=== PATIENT | female | born 1935 | race Caucasian/White ===

== ENCOUNTER 2016-07-24 13:31 | Emergency (ER) | payer OTHER ==
[~2016-07-24] VITALS: Ht 152.4 cm; Wt 56.7 kg
[~2016-07-24 13:31] MED LIST: ALDACTONE25 M1 PO; ALDACTONE25 MG PO; ALLEGRA180 MG PO; ASCRIPTIN1 TA1 PO; ASPIRIN81 MG PO; BACTRIM DS 8001 TAB PO; CARDIZEM CD120 MG PO; CARDIZEM60 MG PO; CELEXA20 MG PO; CEPHULAC10 GM/15 M PO; CHRONULAC10 GM/15 M PO; CIPRO IV400 MG/200; CIPROFLOXACIN500 MG PO; COLACE100 MG PO; CORDARONE200 MG; CORDARONE200 MG PO; DIABETA1.25 MG PO; DIGITEK0.125 MG PO; DILTIAZEM180 MG PO; DOCUSATE SODIU PO; DOXINATE PO; DULCOLAX5 MG PO; DURAGESIC25 MCG/HR TD; Diltiazem180 MG PO; E MYCIN PO; FENTANYL TR25 MCG/HR TD; FENTANYL TR75 MCG/HR TD; FEROSUL325 MG PO; GLUCOSAMINE500 M1 PO; GLYBURIDE1.25 MG PO; HYZAAR 12.5 MG-1 TAB PO; INSULIN HUMA100 U/ML; KCL PO; LANOXIN0.125 MG PO; LISINOPRIL10 MG PO; LOPRESSOR50 MG PO; LOVENOX40 MG/0.4 SC; MAXIDE PO; METOPROLOL SR25 MG PO; METRONIDAZ500 MG/100 IV; MICRO-K8 MEQ PO; MOBIC7.5 MG PO; MULTIPLE VITAMI1 CAP PO; MYLANTA240 MG MM; PACERONE100 MG PO; PEPCID20 MG PO; PERCOCET 325 MG1 TA7 PO; POTASSIUM20 MEQ PO; PRAVACHOL20 MG PO; PRAVACHOL40 MG PO; PRAVASTATIN SOD40 MG PO; PROTONIX IV40 M1 PO; PROTONIX40 MG PO; REGLAN10 MG PO; ROCEPHIN1 GM IV; TPN; ZYVOX100 MG/5 M PO; Zofran4 MG IV; [UNRECOGNIZED DRUG - OTHER] PO; [UNRECOGNIZED DRUG - OTHER] PO; [UNRECOGNIZED DRUG - OTHER] PO
== END 2016-07-24 15:42 | disposition home or self-care (01) ==
LOC: ED 13:31
DX: S05.12XA Contusion of eyeball and orbital tissues, left eye, initial encounter (principal); S60.221A Contusion of right hand, initial encounter; Z90.710 Acquired absence of both cervix and uterus; Z90.49 Acquired absence of other specified parts of digestive tract; Z79.82 Long term (current) use of aspirin; Z96.652 Presence of left artificial knee joint; Z88.0 Allergy status to penicillin; Z88.8 Allergy status to other drugs, medicaments and biological substances; W10.1XXA Fall (on)(from) sidewalk curb, initial encounter; Y93.89 Activity, other specified; Y92.481 Parking lot as the place of occurrence of the external cause; Y99.9 Unspecified external cause status

== ENCOUNTER 2019-09-26 09:19 | Inpatient (IN) | payer OTHER ==
[~2019-09-26] VITALS: Ht 170.2 cm; Wt 61.2 kg
[~2019-09-26 09:19] MED LIST changes: +DIGOX125 MCG PO; +GLYBURIDE5 MG PO; -LANOXIN0.125 MG PO
[2019-09-26 09:31] VITALS: BP 124/36
[2019-09-26 10:52] LABS: BASO % 0.4 % (0.0-1.0); EOS # 0.1 10*3/uL (0.0-0.4); EOS % 1.1 % (1.0-4.0); HEMATOCRIT 33.2 % (37.0-47.0); HEMOGLOBIN 10.2 g/dl (12.0-16.0); LYMPH # 1.3 10*3/uL (1.3-4.4); LYMPH % 12.2 % (27.0-41.0); MEAN CELL VOLUME 88.5 fl (81.0-99.0); MEAN CORPUSCULAR HGB 27.2 pg (27.0-31.0); MEAN CORPUSCULAR HGB CONC 30.7 g/dl (33.0-37.0); MEAN PLATELET VOLUME 9.8 fl (9.6-12.3); MONO # 0.9 10*3/uL (0.1-1.0); MONO % 8.2 % (3.0-9.0); NEUT # 8.5 10*3/uL (2.3-7.9); NEUT % 77.7 % (47.0-73.0); PLATELET COUNT AUTOMATED 394 10*3/uL (130-400); RED BLOOD COUNT 3.75 10*6/uL (4.10-5.10); RED CELL DISTRI WIDTH 15.1 % (0-14.5)
[2019-09-26 11:07] LABS: ALKALINE PHOSPHATASE 47 U/L (45-117); BUN 35 mg/dl (7-24); CHLORIDE 103 mmol/L (98-107); CREATININE 0.93 mg/dL (0.55-1.02); LIPASE 45 U/L (73-393); POTASSIUM 3.8 mmol/L (3.5-5.1); SGOT/AST 10 IU/L (3-35); SGPT/ALT 14 U/L (12-78); SODIUM 137 mmol/L (136-145); TOTAL PROTEIN 6.6 gm/dL (6.4-8.2)
[2019-09-26 11:11] LABS: INTERNATIONAL NORM RATIO 0.9 (2.0-3.5)
[2019-09-26 11:17] LABS: BILIRUBIN NEGATIVE (NEGATIVE); CLARITY SL CLOUDY (CLEAR); COLOR YELLOW (YELLOW); GLUCOSE NEGATIVE (NEGATIVE); KETONE NEGATIVE (NEGATIVE)
[2019-09-26 11:18] LABS: BLOOD NEGATIVE (NEGATIVE); LEUKO ESTERASE 1+ (NEGATIVE); NITRITE NEGATIVE (NEGATIVE); PH 8.5 (5.0-9.0); UROBILINOGEN 0.2 E.U./dl (0.2-1.0)
[2019-09-26 11:19] LABS: WBC 21-30 wbc/hpf (0-5)
[2019-09-26 11:20] LABS: BACTERIA 4+
--- NOTE | 2019-09-26 13:18 | NUR ---
SHELLIE URIAS NP FOR FECAL OCCULT TEST. RESULTS POSITIVE.
[2019-09-26 14:55] VITALS: BP 131/52
--- NOTE | 2019-09-26 15:00 | NUR ---
Time: 1499 A 84 year old FEMALE admitted to 5E under services of DR. KEYONA STEEL,[facility]. Pt. arrived via bed from ER. Chief complaint: UTI, GI BLEED. BUCK ESCOBAR
[2019-09-26] MEDS ORDERED: DIGOXIN250 MCG PO (15:08)
[2019-09-26] MEDS ORDERED: GLYBURIDE5 MG PO (15:10)
[2019-09-26] MEDS ORDERED: VALSARTAN-HCTZ1 EAC2 PO (15:12)
[2019-09-26] MEDS ORDERED: FENOFIBRATE145 M1 PO (15:13)
[2019-09-26] MEDS ORDERED: NAPROXEN500 MG PO (15:14)
[2019-09-26] MEDS ORDERED: AMLODIPINE BESY10 MG PO (15:15)
[2019-09-26] MEDS ORDERED: CLONIDINE HCL0.1 MG PO (15:16)
[2019-09-26] MEDS ORDERED: GLUCOSAMINE &1 EACH PO (15:19)
--- NOTE | 2019-09-26 15:20 | NUR ---
DR RAND AWARE OF PT'S ADM AND WILL SEE PT TODAY. NO ORDERS AT PRESENT.
--- NOTE | 2019-09-26 19:13 | NUR ---
24 HR CHART CHECK COMPLETE.
[2019-09-26 20:00] VITALS: BP 119/44
--- NOTE | 2019-09-26 20:13 | NUR ---
CALLED DR RAND REGARDING PT'S C/O NAUSEA. ORDERS RECIEVED.
--- NOTE | 2019-09-26 20:35 | NUR ---
PT MEDICATED WITH PRN ZOFRAN FOR C/O NAUSEA. WILL MONITOR FOR EFFECTIVENESS.
--- NOTE | 2019-09-27 04:26 | NUR ---
PT CALLED OUT C/O "COLD SWEATS AND SHAKING THAT HAPPENS WHEN MY SUGAR IS LOW" PER PT THIS HAPPENS FREQUENTLY AT HOME. BS IS 44. PT PROVIDED WITH ORANGE JUICE AND SNACK AND HAS A REPEAT SUGAR OF 70. WILL CONTINUE TO MONITOR.
[2019-09-27 06:22] LABS: BASO # 0.1 10*3/uL (0.0-0.1); BASO % 0.6 % (0.0-1.0); EOS # 0.1 10*3/uL (0.0-0.4); EOS % 1.3 % (1.0-4.0); HEMATOCRIT 29.2 % (37.0-47.0); HEMOGLOBIN 8.9 g/dl (12.0-16.0); LYMPH # 1.5 10*3/uL (1.3-4.4); LYMPH % 19.2 % (27.0-41.0); MEAN CORPUSCULAR HGB 27.1 pg (27.0-31.0); MEAN CORPUSCULAR HGB CONC 30.5 g/dl (33.0-37.0); MONO # 0.5 10*3/uL (0.1-1.0); MONO % 6.4 % (3.0-9.0); NEUT # 5.7 10*3/uL (2.3-7.9); NEUT % 71.9 % (47.0-73.0); PLATELET COUNT AUTOMATED 378 10*3/uL (130-400); RED BLOOD COUNT 3.28 10*6/uL (4.10-5.10); RED CELL DISTRI WIDTH 15.1 % (0-14.5)
[2019-09-27 06:42] LABS: CHLORIDE 109 mmol/L (98-107); CREATININE 0.71 mg/dL (0.55-1.02); SODIUM 139 mmol/L (136-145)
[2019-09-27 06:43] LABS: BUN 19 mg/dl (7-24)
--- NOTE | 2019-09-27 07:25 | NUR ---
Nursing screen received and chart reviewed. Patient admitted with UTI and GI Bleed. If patient should havea decline in ADLs then refer for occupational therapy evaluation. THank you. Haley Hankins OTR/L
--- NOTE | 2019-09-27 07:57 | NUR ---
PHYSICAL THERAPY Screen received pt is from home, admitted with abdominal pain with GI bleed and UTI. Please consult PT if pt has a decline in functional status from baseline, thank you Aimee Bragg PT
[2019-09-27 08:00] VITALS: BP 107/53
--- NOTE | 2019-09-27 11:53 | NUR ---
FOLLOWED ORDERS PER DR. RAND. DC CLONIDINE, AND PO DIABETIC MEDICATIONS, RECHECK HGB. LAB TIME SET FOR 1700 09/27/19.
[2019-09-27 12:00] VITALS: BP 121/41
--- NOTE | 2019-09-27 13:28 | NUR ---
Public Safety Dispatcher in to talk to patient. Patient states lives at home with her and her daughter checking in on them. There are 0 steps in the home. Physician: Dr. Yeung [facility]acy: [facility] Home health services: none Patient's level of ADLs: MINIMAL ASSIST Patient has working utilities: yes DME: cane Follow-up physician's appointment after d/c: she prefers to make her own follow up appt after discharge Does patient want to access PORTAL?: no Discharge plan discussed with patient. She lives at home with her . She is independent in her ADLs and ambulates with a cane. Discussed home health care services and she denies any home needs at this time. When medically stable she will be discharged to home. She states her daughter will provide transportation on discharge. BE ANDERSON
[2019-09-27 16:00] VITALS: BP 136/46
[2019-09-27 17:34] LABS: BASO % 0.7 % (0.0-1.0); EOS # 0.1 10*3/uL (0.0-0.4); HEMATOCRIT 30.1 % (37.0-47.0); HEMOGLOBIN 9.2 g/dl (12.0-16.0); LYMPH # 1.8 10*3/uL (1.3-4.4); LYMPH % 31.6 % (27.0-41.0); MEAN CELL VOLUME 89.3 fl (81.0-99.0); MEAN CORPUSCULAR HGB 27.3 pg (27.0-31.0); MEAN CORPUSCULAR HGB CONC 30.6 g/dl (33.0-37.0); MONO # 0.5 10*3/uL (0.1-1.0); MONO % 8.7 % (3.0-9.0); NEUT # 3.1 10*3/uL (2.3-7.9); NEUT % 56.6 % (47.0-73.0); PLATELET COUNT AUTOMATED 370 10*3/uL (130-400); RED BLOOD COUNT 3.37 10*6/uL (4.10-5.10); WHITE BLOOD COUNT 5.5 10*3/uL (4.8-10.8)
[2019-09-27 20:00] VITALS: BP 155/51
[2019-09-28] VITALS (8 sets, daily range): BP systolic 127–153; BP diastolic 45–64
--- NOTE | 2019-09-28 09:00 | NUR ---
Pick Pack Worker in to see patient. No new needs or request at this time. She denies any home needs. When medically stable she will be discharged to home.
--- NOTE | 2019-09-28 20:34 | NUR ---
PATIENT IS AAOX3 RESTING IN BED WATCHING TV WITH EASY AND REGULAR RESPERS ON ROOM AIR. ASSESSMENT IS COMPLETE WITH NO C/O OR S/S OF DISTRESS NOTED AT THIS TIME. BED IS LOW, LOCKED, AND CALL LIGHT IS WITHIN REACH. WILL CONTINUE TO MONITOR, SEE SHIFT ASSESSMENT.
[2019-09-29] VITALS: BP 152/63
[2019-09-29 06:33] LABS: BASO # 0.1 10*3/uL (0.0-0.1); BASO % 0.9 % (0.0-1.0); EOS # 0.2 10*3/uL (0.0-0.4); EOS % 3.5 % (1.0-4.0); HEMATOCRIT 32.8 % (37.0-47.0); HEMOGLOBIN 10.1 g/dl (12.0-16.0); LYMPH # 2.3 10*3/uL (1.3-4.4); LYMPH % 35.3 % (27.0-41.0); MEAN CORPUSCULAR HGB 26.4 pg (27.0-31.0); MEAN CORPUSCULAR HGB CONC 30.8 g/dl (33.0-37.0); MEAN PLATELET VOLUME 9.7 fl (9.6-12.3); MONO # 0.7 10*3/uL (0.1-1.0); MONO % 10.7 % (3.0-9.0); NEUT # 3.2 10*3/uL (2.3-7.9); NEUT % 49.4 % (47.0-73.0); PLATELET COUNT AUTOMATED 472 10*3/uL (130-400); RED BLOOD COUNT 3.83 10*6/uL (4.10-5.10); RED CELL DISTRI WIDTH 14.6 % (0-14.5); WHITE BLOOD COUNT 6.5 10*3/uL (4.8-10.8)
[2019-09-29 06:47] LABS: CHLORIDE 109 mmol/L (98-107); POTASSIUM 3.3 mmol/L (3.5-5.1); SODIUM 142 mmol/L (136-145)
[2019-09-29 06:48] LABS: CREATININE 0.55 mg/dL (0.55-1.02)
[2019-09-29 06:52] LABS: BUN 5 mg/dl (7-24)
[2019-09-29 06:57] LABS: MEAN CELL VOLUME 85.6 fl (81.0-99.0)
[2019-09-29 08:00] VITALS: BP 143/55
[2019-09-29 12:00] VITALS: BP 158/68
[2019-09-29] MEDS ORDERED: PROTONIX40 MG PO (12:55)
[2019-09-29] MEDS ORDERED: CARAFATE1 G1 PO (12:55)
[2019-09-29 16:00] VITALS: BP 177/66
[2019-09-29] MEDS ORDERED: CIPRO500 MG PO (16:02)
--- NOTE | 2019-09-29 18:23 | NUR ---
Discharge instructions reviewed with patient. Patient receptive and verbalizes understanding. Follow-up care arranged. Written instructions given to patient, IV REMOVED, PATIENT TAKEN OUT VIA W/C BY HOSPITAL PA. ELENA WILKINSON
== END 2019-09-29 19:07 | disposition home or self-care (01) | DRG 378 ==
LOC: ED 09:19 → EDHOLD 13:25 → 5E 13:25
PROVIDERS: Nurse Practitioner Family; ADMIT Internal Medicine Nephrology
PROC: 0DJD8ZZ Inspection of Lower Intestinal Tract, Via Natural or Artificial Opening Endoscopic (ICD-10-PCS; principal; 2019-09-28)
PROC: 0DB68ZX Excision of Stomach, Via Natural or Artificial Opening Endoscopic, Diagnostic (ICD-10-PCS; principal; 2019-09-28)
DX: K57.31 Diverticulosis of large intestine without perforation or abscess with bleeding (principal); N17.9 Acute kidney failure, unspecified; N39.0 Urinary tract infection, site not specified; E86.9 Volume depletion, unspecified; K25.4 Chronic or unspecified gastric ulcer with hemorrhage; I48.0 Paroxysmal atrial fibrillation; I10 Essential (primary) hypertension; Z96.652 Presence of left artificial knee joint; K44.9 Diaphragmatic hernia without obstruction or gangrene; M19.90 Unspecified osteoarthritis, unspecified site; R19.7 Diarrhea, unspecified; D64.9 Anemia, unspecified; E11.649 Type 2 diabetes mellitus with hypoglycemia without coma; B96.1 Klebsiella pneumoniae [K. pneumoniae] as the cause of diseases classified elsewhere; Z85.028 Personal history of other malignant neoplasm of stomach; Z88.0 Allergy status to penicillin; Z88.8 Allergy status to other drugs, medicaments and biological substances; Z91.018 Allergy to other foods; Z90.3 Acquired absence of stomach [part of]; Z90.49 Acquired absence of other specified parts of digestive tract; Z90.710 Acquired absence of both cervix and uterus; Z82.49 Family history of ischemic heart disease and other diseases of the circulatory system; Z82.3 Family history of stroke; Z79.82 Long term (current) use of aspirin; Z79.891 Long term (current) use of opiate analgesic; Z79.899 Other long term (current) drug therapy; Z85.038 Personal history of other malignant neoplasm of large intestine

== ENCOUNTER 2021-09-07 09:11 | Inpatient (IN) | payer OTHER ==
[~2021-09-07] VITALS: Ht 167.6 cm; Wt 71.2 kg
[~2021-09-07 09:11] MED LIST changes: +AMLODIPINE BESY10 MG PO; +ASPIRIN CHEWABL81 MG PO; +CARAFATE1 G1 PO; +CIPRO500 MG PO; +CLONIDINE HCL0.1 MG PO; +DIGOXIN125 MCG PO; +DIGOXIN250 MCG PO; +FENOFIBRATE145 M1 PO; +GLUCOSAMINE &1 EACH PO; +GLUCOTROL10 MG PO; +LOPRESSOR25 MG PO; +NAPROXEN500 MG PO; +VALSARTAN-HCTZ1 EAC2 PO; +XARELTO20 M1 PO
[2021-09-07 09:19] VITALS: BP 162/93
[2021-09-07] MEDS ORDERED: PANTOPRAZOLE SO40 MG PO (09:27)
[2021-09-07] MEDS ORDERED: GLIPIZIDE10 M2 PO (09:28)
[2021-09-07 09:41] LABS: BASO # 0.1 10*3/uL (0.0-0.1); BASO % 0.7 % (0.0-1.0); EOS # 0.1 10*3/uL (0.0-0.4); EOS % 1.5 % (1.0-4.0); HEMATOCRIT 43.6 % (37.0-47.0); LYMPH # 1.6 10*3/uL (1.3-4.4); LYMPH % 18.3 % (27.0-41.0); MEAN CELL VOLUME 87.9 fl (81.0-99.0); MEAN CORPUSCULAR HGB 28.8 pg (27.0-31.0); MEAN CORPUSCULAR HGB CONC 32.8 g/dl (33.0-37.0); MONO # 0.7 10*3/uL (0.1-1.0); NEUT # 6.2 10*3/uL (2.3-7.9); NEUT % 71.3 % (47.0-73.0); PLATELET COUNT AUTOMATED 272 10*3/uL (130-400); RED BLOOD COUNT 4.96 10*6/uL (4.10-5.10); RED CELL DISTRI WIDTH 14.4 % (0-14.5); WHITE BLOOD COUNT 8.6 10*3/uL (4.8-10.8)
[2021-09-07 09:54] LABS: ACT PARTIAL THROMBO TIME 38.2 SECONDS (20.0-32.1); INTERNATIONAL NORM RATIO 1.1 (2.0-3.5)
[2021-09-07 09:59] LABS: ALKALINE PHOSPHATASE 88 U/L (45-117); BUN 14 mg/dl (7-24); CHLORIDE 101 mmol/L (98-107); CREATININE 0.64 mg/dL (0.55-1.02); LIPASE 45 U/L (73-393); POTASSIUM 3.6 mmol/L (3.5-5.1); SGOT/AST 20 IU/L (3-35); SODIUM 136 mmol/L (136-145); TOTAL PROTEIN 7.6 gm/dL (6.4-8.2)
[2021-09-07 10:00] LABS: SGPT/ALT 32 U/L (12-78)
[2021-09-07 10:12] VITALS: BP 105/63
[2021-09-07 12:00] VITALS: BP 124/62
[2021-09-07 13:57] LABS: BILIRUBIN Negative (Negative); BLOOD Negative (Negative); CLARITY Clear (Clear); COLOR Yellow (Yellow); GLUCOSE Negative (Negative); KETONE Negative (Negative); LEUKO ESTERASE Negative (Negative); NITRITE Negative (Negative); PH 7.5 (4.5-8.0)
[2021-09-07 14:08] LABS: EPITHELIAL CELLS 51-100; RBC 0-2 rbc/hpf (0-2); WBC 0-2 wbc/hpf (0-5)
[2021-09-07 14:09] LABS: BACTERIA 1+
[2021-09-07 16:00] VITALS: BP 133/66
[2021-09-07 20:00] VITALS: BP 134/68
[2021-09-08] VITALS: BP 151/59
[2021-09-08 06:41] LABS: BASO # 0.1 10*3/uL (0.0-0.1); BASO % 0.9 % (0.0-1.0); EOS # 0.2 10*3/uL (0.0-0.4); HEMATOCRIT 39.1 % (37.0-47.0); LYMPH # 2.3 10*3/uL (1.3-4.4); LYMPH % 30.5 % (27.0-41.0); MEAN CELL VOLUME 89.5 fl (81.0-99.0); MEAN CORPUSCULAR HGB 28.8 pg (27.0-31.0); MEAN CORPUSCULAR HGB CONC 32.2 g/dl (33.0-37.0); MEAN PLATELET VOLUME 10.1 fl (9.6-12.3); MONO # 0.9 10*3/uL (0.1-1.0); MONO % 11.5 % (3.0-9.0); NEUT % 54.8 % (47.0-73.0); PLATELET COUNT AUTOMATED 270 10*3/uL (130-400); RED BLOOD COUNT 4.37 10*6/uL (4.10-5.10); RED CELL DISTRI WIDTH 14.6 % (0-14.5); WHITE BLOOD COUNT 7.4 10*3/uL (4.8-10.8)
[2021-09-08 06:59] LABS: BUN 22 mg/dl (7-24); CHLORIDE 103 mmol/L (98-107); CREATININE 0.75 mg/dL (0.55-1.02); FREE T4 1.14 ng/dl (0.76-1.46); POTASSIUM 3.5 mmol/L (3.5-5.1); SODIUM 137 mmol/L (136-145)
[2021-09-08 08:00] VITALS: BP 120/62
[2021-09-08 12:00] VITALS: BP 122/64
== END 2021-09-08 15:45 | disposition home or self-care (01) | DRG 310 ==
LOC: ED 09:11 → EDHOLD 10:15 → 5E 10:15
PROVIDERS: Emergency Medicine; ADMIT Internal Medicine; ATTEND Internal Medicine
DX: I48.0 Paroxysmal atrial fibrillation (principal); I10 Essential (primary) hypertension; E11.9 Type 2 diabetes mellitus without complications; K21.9 Gastro-esophageal reflux disease without esophagitis; Z88.0 Allergy status to penicillin; Z88.8 Allergy status to other drugs, medicaments and biological substances; Z79.899 Other long term (current) drug therapy; Z85.028 Personal history of other malignant neoplasm of stomach; I51.7 Cardiomegaly

== ENCOUNTER → 2021-10-27 | Outpatient (CLI) | payer OTHER ==
[~2021-10-27] MED LIST changes: +GLIPIZIDE10 M2 PO; +GLUCOSAMINE CH1 EAC5 PO; +PANTOPRAZOLE SO40 MG PO; +STOOL SOFTENER100 M3 PO
== END | disposition home or self-care (01) ==
LOC: RAD 09:39
PROVIDERS: ATTEND Internal Medicine Nephrology
DX: M19.042 Primary osteoarthritis, left hand (principal); M25.742 Osteophyte, left hand; M25.832 Other specified joint disorders, left wrist

== ENCOUNTER 2021-10-28 21:39 | Inpatient (IN) | payer OTHER ==
[~2021-10-28] VITALS: Ht 167.6 cm; Wt 74.1 kg
[~2021-10-28 21:39] MED LIST changes: -GLUCOSAMINE CH1 EAC5 PO; -STOOL SOFTENER100 M3 PO
[2021-10-28 21:50] VITALS: BP 174/82
[2021-10-28 22:04] LABS: BASO # 0.1 10*3/uL (0.0-0.1); BASO % 0.5 % (0.0-1.0); EOS # 0.2 10*3/uL (0.0-0.4); EOS % 1.8 % (1.0-4.0); HEMATOCRIT 33.1 % (37.0-47.0); LYMPH % 19.3 % (27.0-41.0); MEAN CELL VOLUME 87.3 fl (81.0-99.0); MEAN CORPUSCULAR HGB 28.8 pg (27.0-31.0); MEAN CORPUSCULAR HGB CONC 32.9 g/dl (33.0-37.0); MEAN PLATELET VOLUME 10.3 fl (9.6-12.3); MONO # 1.1 10*3/uL (0.1-1.0); MONO % 10.9 % (3.0-9.0); NEUT % 67.1 % (47.0-73.0); PLATELET COUNT AUTOMATED 319 10*3/uL (130-400); RED BLOOD COUNT 3.79 10*6/uL (4.10-5.10); RED CELL DISTRI WIDTH 14.4 % (0-14.5); WHITE BLOOD COUNT 10.4 10*3/uL (4.8-10.8)
[2021-10-28 22:16] VITALS: BP 132/81
[2021-10-28 22:46] LABS: ALKALINE PHOSPHATASE 91 U/L (45-117); BUN 26 mg/dl (7-24); CHLORIDE 106 mmol/L (98-107); CREATININE 0.68 mg/dL (0.55-1.02); POTASSIUM 3.7 mmol/L (3.5-5.1); SGOT/AST 20 IU/L (3-35); SGPT/ALT 26 U/L (12-78); SODIUM 138 mmol/L (136-145); TOTAL PROTEIN 6.9 gm/dL (6.4-8.2)
[2021-10-28 22:47] LABS: ACT PARTIAL THROMBO TIME 39.6 SECONDS (20.0-32.1); INTERNATIONAL NORM RATIO 1.1 (2.0-3.5)
[2021-10-28 23:10] VITALS: BP 133/60
[2021-10-29] VITALS (9 sets, daily range): BP systolic 95–143; BP diastolic 44–67
[2021-10-29 05:11] LABS: BUN 28 mg/dl (7-24); CHLORIDE 106 mmol/L (98-107); CHOLESTEROL 102 mg/dL (<200); CREATININE 0.71 mg/dL (0.55-1.02); POTASSIUM 3.8 mmol/L (3.5-5.1); SGOT/AST 12 IU/L (3-35); SGPT/ALT 19 U/L (12-78); SODIUM 139 mmol/L (136-145); TOTAL PROTEIN 5.8 gm/dL (6.4-8.2); TRIGLYCERIDES 187 mg/dl (<150)
[2021-10-29 05:12] LABS: ALKALINE PHOSPHATASE 78 U/L (45-117)
[2021-10-29 05:13] LABS: LDL CHOLESTEROL 38 mg/dL (9-159)
[2021-10-29 05:58] LABS: BASO # 0.1 10*3/uL (0.0-0.1); BASO % 0.6 % (0.0-1.0); EOS # 0.1 10*3/uL (0.0-0.4); EOS % 1.6 % (1.0-4.0); HEMATOCRIT 29.4 % (37.0-47.0); LYMPH # 1.6 10*3/uL (1.3-4.4); LYMPH % 17.9 % (27.0-41.0); MEAN CELL VOLUME 89.1 fl (81.0-99.0); MEAN CORPUSCULAR HGB 28.2 pg (27.0-31.0); MEAN CORPUSCULAR HGB CONC 31.6 g/dl (33.0-37.0); MEAN PLATELET VOLUME 10.5 fl (9.6-12.3); MONO # 1.1 10*3/uL (0.1-1.0); MONO % 11.8 % (3.0-9.0); NEUT # 6.1 10*3/uL (2.3-7.9); NEUT % 67.5 % (47.0-73.0); PLATELET COUNT AUTOMATED 291 10*3/uL (130-400); RED CELL DISTRI WIDTH 14.3 % (0-14.5)
[2021-10-29 12:28] LABS: BILIRUBIN Negative (Negative); BLOOD Negative (Negative); CLARITY Clear (Clear); COLOR Yellow (Yellow); GLUCOSE Negative (Negative); KETONE Negative (Negative); LEUKO ESTERASE 2+ (Negative); NITRITE Negative (Negative); PH 5.5 (4.5-8.0)
[2021-10-29 12:39] LABS: BACTERIA TRACE
[2021-10-29] MEDS ORDERED: GLUCOSAMINE CH1 EAC5 PO (15:28)
[2021-10-29] MEDS ORDERED: STOOL SOFTENER100 M3 PO (15:28)
[2021-10-30] VITALS: BP 157/65
[2021-10-30 08:00] VITALS: BP 152/60
[2021-10-30 12:00] VITALS: BP 175/68
[2021-10-30 13:04] VITALS: BP 144/84
== END 2021-10-30 16:59 | disposition home or self-care (01) | DRG 308 ==
LOC: ED 21:39 → EDHOLD 10-29 01:29 → 4E 10-29 01:29
PROVIDERS: Emergency Medicine; Internal Medicine; Student in an Organized Health Care Education/Training Program; ADMIT Internal Medicine; ATTEND Internal Medicine
DX: I48.0 Paroxysmal atrial fibrillation (principal); I50.31 Acute diastolic (congestive) heart failure; E78.2 Mixed hyperlipidemia; E11.65 Type 2 diabetes mellitus with hyperglycemia; D64.9 Anemia, unspecified; Z85.028 Personal history of other malignant neoplasm of stomach; Z88.0 Allergy status to penicillin; Z88.8 Allergy status to other drugs, medicaments and biological substances; Z79.899 Other long term (current) drug therapy; Z90.49 Acquired absence of other specified parts of digestive tract; Z90.710 Acquired absence of both cervix and uterus

== ENCOUNTER 2021-11-08 23:56 | Observation (INO) | payer OTHER ==
[~2021-11-08] VITALS: Ht 167.6 cm; Wt 71.9 kg
[~2021-11-08 23:56] MED LIST changes: +GLUCOSAMINE CH1 EAC5 PO; +STOOL SOFTENER100 M3 PO
[2021-11-09] VITALS (23 sets, daily range): BP systolic 122–182; BP diastolic 49–75
[2021-11-09 00:18] LABS: BASO % 0.4 % (0.0-1.0); EOS # 0.2 10*3/uL (0.0-0.4); EOS % 1.9 % (1.0-4.0); HEMATOCRIT 23.4 % (37.0-47.0); LYMPH # 2.4 10*3/uL (1.3-4.4); LYMPH % 23.7 % (27.0-41.0); MEAN CELL VOLUME 89.3 fl (81.0-99.0); MEAN CORPUSCULAR HGB 27.5 pg (27.0-31.0); MEAN CORPUSCULAR HGB CONC 30.8 g/dl (33.0-37.0); MEAN PLATELET VOLUME 9.5 fl (9.6-12.3); MONO # 1.1 10*3/uL (0.1-1.0); MONO % 11.3 % (3.0-9.0); NEUT # 6.2 10*3/uL (2.3-7.9); NEUT % 61.6 % (47.0-73.0); NUCLEATED RED BLOOD CELL 0.3 % (0.0-0.0); PLATELET COUNT AUTOMATED 394 10*3/uL (130-400); RED BLOOD COUNT 2.62 10*6/uL (4.10-5.10); RED CELL DISTRI WIDTH 15.3 % (0-14.5); WHITE BLOOD COUNT 10.1 10*3/uL (4.8-10.8)
[2021-11-09 00:29] LABS: ACT PARTIAL THROMBO TIME 31.3 SECONDS (20.0-32.1)
[2021-11-09 00:32] LABS: ALKALINE PHOSPHATASE 75 U/L (45-117); BUN 33 mg/dl (7-24); CHLORIDE 107 mmol/L (98-107); CREATININE 0.77 mg/dL (0.55-1.02); POTASSIUM 3.8 mmol/L (3.5-5.1); SGOT/AST 15 IU/L (3-35); SGPT/ALT 18 U/L (12-78); SODIUM 140 mmol/L (136-145); TOTAL PROTEIN 6.5 gm/dL (6.4-8.2)
[2021-11-09 05:38] LABS: THYROID STIM HORMONE (HS) 3.89 uIU/ml (0.358-4.75)
[2021-11-09 07:26] LABS: FERRITIN 11.5 ng/mL (10.0-291.0)
[2021-11-09 14:33] LABS: BASO # 0.1 10*3/uL (0.0-0.1); BASO % 0.5 % (0.0-1.0); EOS # 0.2 10*3/uL (0.0-0.4); EOS % 1.8 % (1.0-4.0); HEMATOCRIT 25.9 % (37.0-47.0); LYMPH # 1.7 10*3/uL (1.3-4.4); LYMPH % 16.4 % (27.0-41.0); MEAN CELL VOLUME 90.2 fl (81.0-99.0); MEAN CORPUSCULAR HGB 27.9 pg (27.0-31.0); MEAN CORPUSCULAR HGB CONC 30.9 g/dl (33.0-37.0); MEAN PLATELET VOLUME 9.5 fl (9.6-12.3); MONO % 9.9 % (3.0-9.0); NEUT # 7.2 10*3/uL (2.3-7.9); NEUT % 70.6 % (47.0-73.0); PLATELET COUNT AUTOMATED 363 10*3/uL (130-400); RED BLOOD COUNT 2.87 10*6/uL (4.10-5.10); RED CELL DISTRI WIDTH 14.8 % (0-14.5); WHITE BLOOD COUNT 10.2 10*3/uL (4.8-10.8)
[2021-11-10] VITALS: BP 149/73
[2021-11-10 06:10] LABS: CHLORIDE 110 mmol/L (98-107); CREATININE 0.53 mg/dL (0.55-1.02); POTASSIUM 3.8 mmol/L (3.5-5.1); SODIUM 139 mmol/L (136-145)
[2021-11-10 06:11] LABS: RETICULOCYTE % 5.6 % (0.50-2.50)
[2021-11-10 06:21] LABS: BUN 16 mg/dl (7-24)
[2021-11-10 06:25] LABS: BASO # 0.1 10*3/uL (0.0-0.1); BASO % 0.7 % (0.0-1.0); EOS # 0.2 10*3/uL (0.0-0.4); EOS % 2.3 % (1.0-4.0); HEMATOCRIT 27.2 % (37.0-47.0); LYMPH # 2.1 10*3/uL (1.3-4.4); LYMPH % 22.6 % (27.0-41.0); MEAN CELL VOLUME 87.7 fl (81.0-99.0); MEAN CORPUSCULAR HGB 28.4 pg (27.0-31.0); MEAN CORPUSCULAR HGB CONC 32.4 g/dl (33.0-37.0); MEAN PLATELET VOLUME 9.9 fl (9.6-12.3); MONO # 1.2 10*3/uL (0.1-1.0); NEUT # 5.6 10*3/uL (2.3-7.9); NEUT % 60.7 % (47.0-73.0); NUCLEATED RED BLOOD CELL 0.3 % (0.0-0.0); PLATELET COUNT AUTOMATED 356 10*3/uL (130-400); WHITE BLOOD COUNT 9.1 10*3/uL (4.8-10.8)
[2021-11-10 08:00] VITALS: BP 147/58; BP 157/58
[2021-11-10 12:00] VITALS: BP 146/57; BP 155/58
[2021-11-10 14:04] LABS: BASO # 0.1 10*3/uL (0.0-0.1); BASO % 0.6 % (0.0-1.0); EOS # 0.2 10*3/uL (0.0-0.4); HEMATOCRIT 28.3 % (37.0-47.0); LYMPH # 1.8 10*3/uL (1.3-4.4); LYMPH % 20.6 % (27.0-41.0); MEAN CELL VOLUME 88.7 fl (81.0-99.0); MEAN CORPUSCULAR HGB 28.5 pg (27.0-31.0); MEAN CORPUSCULAR HGB CONC 32.2 g/dl (33.0-37.0); MEAN PLATELET VOLUME 9.5 fl (9.6-12.3); MONO % 11.3 % (3.0-9.0); NEUT # 5.8 10*3/uL (2.3-7.9); NEUT % 64.7 % (47.0-73.0); PLATELET COUNT AUTOMATED 355 10*3/uL (130-400); RED BLOOD COUNT 3.19 10*6/uL (4.10-5.10); RED CELL DISTRI WIDTH 15.2 % (0-14.5); WHITE BLOOD COUNT 8.9 10*3/uL (4.8-10.8)
[2021-11-10 16:00] VITALS: BP 131/87
[2021-11-10 20:00] VITALS: BP 150/78
[2021-11-11] VITALS: BP 127/62
[2021-11-11 03:06] LABS: TOTAL PROTEIN, SERUM 5.3 g/dL (6.0-8.5)
[2021-11-11 08:00] VITALS: BP 174/60
[2021-11-11 12:00] VITALS: BP 153/54
[2021-11-11 15:07] LABS: A/G RATIO 1.2 (0.7-1.7); ALBUMIN 2.9 g/dL (2.9-4.4); ALPHA-1-GLOBULIN 0.3 g/dL (0.0-0.4); ALPHA-2-GLOBULIN 0.8 g/dL (0.4-1.0); BETA GLOBULIN 0.9 g/dL (0.7-1.3); GAMMA GLOBULIN 0.4 g/dL (0.4-1.8); GLOBULIN, TOTAL 2.4 g/dL (2.2-3.9); M-SPIKE Not Observed g/dL (Not Observed); PE INTERPRETATION Comment: (.)
[2021-11-11 16:00] VITALS: BP 167/53
[2021-11-11] MEDS ORDERED: CARAFATE1 GM PO (16:57)
[2021-11-11] MEDS ORDERED: FEOSOL45 M1 PO (17:35)
[2021-11-11 19:29] LABS: BASO # 0.1 10*3/uL (0.0-0.1); BASO % 0.9 % (0.0-1.0); EOS # 0.2 10*3/uL (0.0-0.4); EOS % 2.4 % (1.0-4.0); HEMATOCRIT 31.1 % (37.0-47.0); LYMPH # 2.3 10*3/uL (1.3-4.4); LYMPH % 29.5 % (27.0-41.0); MEAN CELL VOLUME 89.1 fl (81.0-99.0); MEAN CORPUSCULAR HGB 28.1 pg (27.0-31.0); MEAN CORPUSCULAR HGB CONC 31.5 g/dl (33.0-37.0); MEAN PLATELET VOLUME 9.3 fl (9.6-12.3); MONO # 0.7 10*3/uL (0.1-1.0); MONO % 8.8 % (3.0-9.0); NEUT # 4.6 10*3/uL (2.3-7.9); NEUT % 57.5 % (47.0-73.0); PLATELET COUNT AUTOMATED 373 10*3/uL (130-400); RED BLOOD COUNT 3.49 10*6/uL (4.10-5.10); RED CELL DISTRI WIDTH 15.1 % (0-14.5); WHITE BLOOD COUNT 7.9 10*3/uL (4.8-10.8)
== END 2021-11-11 20:07 | disposition home or self-care (01) ==
LOC: ED 23:56 → 4E 11-09 02:43 → EDHOLD 11-09 02:43 → 4E 11-09 03:22
PROVIDERS: Internal Medicine; Registered Nurse; ADMIT Internal Medicine; ATTEND Internal Medicine
DX: I48.91 Unspecified atrial fibrillation (principal); I51.7 Cardiomegaly; D64.9 Anemia, unspecified; R07.89 Other chest pain; N17.9 Acute kidney failure, unspecified; K92.2 Gastrointestinal hemorrhage, unspecified; Z79.899 Other long term (current) drug therapy; Z88.0 Allergy status to penicillin

== ENCOUNTER 2022-06-14 09:44 | Inpatient (IN) | payer OTHER ==
[~2022-06-14] VITALS: Ht 162.5 cm; Wt 70.4 kg
[~2022-06-14 09:44] MED LIST changes: +CARAFATE1 GM PO; +FEOSOL45 M1 PO
[2022-06-14 10:17] VITALS: BP 177/73
[2022-06-14 10:48] LABS: LIPASE 72 U/L (73-393)
[2022-06-14 11:08] LABS: BASO % 0.5 % (0.0-1.0); EOS # 0.2 10*3/uL (0.0-0.4); EOS % 2.4 % (1.0-4.0); HEMATOCRIT 40.7 % (37.0-47.0); LYMPH # 1.6 10*3/uL (1.3-4.4); LYMPH % 21.1 % (27.0-41.0); MEAN CELL VOLUME 87.7 fl (81.0-99.0); MEAN CORPUSCULAR HGB CONC 31.9 g/dl (33.0-37.0); MEAN PLATELET VOLUME 10.5 fl (9.6-12.3); MONO # 0.8 10*3/uL (0.1-1.0); NEUT % 65.6 % (47.0-73.0); PLATELET COUNT AUTOMATED 287 10*3/uL (130-400); RED BLOOD COUNT 4.64 10*6/uL (4.10-5.10); RED CELL DISTRI WIDTH 14.6 % (0-14.5); WHITE BLOOD COUNT 7.6 10*3/uL (4.8-10.8)
[2022-06-14 11:09] LABS: ACT PARTIAL THROMBO TIME 39.4 SECONDS (20.0-32.1); INTERNATIONAL NORM RATIO 1.1 (2.0-3.5)
[2022-06-14 11:20] LABS: ALKALINE PHOSPHATASE 89 U/L (45-117); BUN 19 mg/dl (7-24); CHLORIDE 106 mmol/L (98-107); CREATININE 0.81 mg/dL (0.55-1.02); POTASSIUM 3.7 mmol/L (3.5-5.1); SGPT/ALT 26 U/L (12-78); SODIUM 137 mmol/L (136-145)
[2022-06-14] MEDS ORDERED: VITAMIN C1000 M5 PO (15:29)
[2022-06-14 19:02] VITALS: BP 181/80
[2022-06-14 21:37] VITALS: BP 156/72
[2022-06-14 22:52] VITALS: BP 124/51
[2022-06-15] VITALS (10 sets, daily range): BP systolic 119–150; BP diastolic 50–70
[2022-06-15 03:56] LABS: BASO # 0.1 10*3/uL (0.0-0.1); BASO % 0.8 % (0.0-1.0); EOS # 0.2 10*3/uL (0.0-0.4); EOS % 3.2 % (1.0-4.0); HEMATOCRIT 38.1 % (37.0-47.0); LYMPH # 2.2 10*3/uL (1.3-4.4); LYMPH % 29.3 % (27.0-41.0); MEAN CELL VOLUME 87.6 fl (81.0-99.0); MEAN CORPUSCULAR HGB 28.3 pg (27.0-31.0); MEAN CORPUSCULAR HGB CONC 32.3 g/dl (33.0-37.0); MEAN PLATELET VOLUME 10.5 fl (9.6-12.3); MONO # 0.9 10*3/uL (0.1-1.0); MONO % 12.3 % (3.0-9.0); NEUT # 4.1 10*3/uL (2.3-7.9); PLATELET COUNT AUTOMATED 275 10*3/uL (130-400); RED BLOOD COUNT 4.35 10*6/uL (4.10-5.10); RED CELL DISTRI WIDTH 14.8 % (0-14.5); WHITE BLOOD COUNT 7.5 10*3/uL (4.8-10.8)
[2022-06-15 04:10] LABS: BUN 16 mg/dl (7-24); CHLORIDE 106 mmol/L (98-107); CREATININE 0.65 mg/dL (0.55-1.02); POTASSIUM 3.6 mmol/L (3.5-5.1); SODIUM 140 mmol/L (136-145)
[2022-06-15] MEDS ORDERED: MULTIPLE VITAM1 EAC2 PO (15:46)
[2022-06-15] MEDS ORDERED: MASON NATURAL325 MG PO (15:47)
[2022-06-15] MEDS ORDERED: TYLENOL325 M3 PO (15:48)
[2022-06-16] VITALS (7 sets, daily range): BP systolic 110–192; BP diastolic 54–86
[2022-06-16 02:35] LABS: BASO # 0.1 10*3/uL (0.0-0.1); BASO % 0.8 % (0.0-1.0); EOS # 0.2 10*3/uL (0.0-0.4); EOS % 2.6 % (1.0-4.0); LYMPH # 2.1 10*3/uL (1.3-4.4); MEAN CELL VOLUME 85.8 fl (81.0-99.0); MEAN CORPUSCULAR HGB 28.5 pg (27.0-31.0); MEAN CORPUSCULAR HGB CONC 33.3 g/dl (33.0-37.0); MEAN PLATELET VOLUME 9.9 fl (9.6-12.3); MONO % 12.4 % (3.0-9.0); NEUT # 4.4 10*3/uL (2.3-7.9); NEUT % 56.8 % (47.0-73.0); PLATELET COUNT AUTOMATED 285 10*3/uL (130-400); RED BLOOD COUNT 4.66 10*6/uL (4.10-5.10); RED CELL DISTRI WIDTH 14.6 % (0-14.5); WHITE BLOOD COUNT 7.7 10*3/uL (4.8-10.8)
[2022-06-16 02:45] LABS: CHLORIDE 101 mmol/L (98-107); POTASSIUM 3.7 mmol/L (3.4-5.1); SODIUM 137 mmol/L (136-145)
[2022-06-16 02:51] LABS: BUN 13 mg/dl (9-23); CREATININE 0.66 mg/dL (0.55-1.02)
[2022-06-17] VITALS: BP 153/65
[2022-06-17] MEDS ORDERED: AMIODARONE HYD200 MG PO (00:48)
[2022-06-17] MEDS ORDERED: ATORVASTATIN CA40 M1 PO (00:48)
== END 2022-06-17 07:40 | disposition short-term general hospital (02) | DRG 377 ==
LOC: ED 09:44 → EDHOLD 14:50 → 4E 14:50 → EDHOLD 19:30 → 4E 06-15 14:23
PROVIDERS: Emergency Medicine; Internal Medicine; ADMIT Internal Medicine; ATTEND Internal Medicine
PROC: 4A02XM4 Measurement of Cardiac Total Activity, External Approach (ICD-10-PCS; principal; 2022-06-16)
PROC: 3E073KZ Introduction of Other Diagnostic Substance into Coronary Artery, Percutaneous Approach (ICD-10-PCS; 2022-06-16)
DX: K92.2 Gastrointestinal hemorrhage, unspecified (principal); I21.A1 Myocardial infarction type 2; E61.1 Iron deficiency; I48.0 Paroxysmal atrial fibrillation; E11.9 Type 2 diabetes mellitus without complications; I51.7 Cardiomegaly; Z88.0 Allergy status to penicillin; Z88.8 Allergy status to other drugs, medicaments and biological substances; Z90.710 Acquired absence of both cervix and uterus; Z90.49 Acquired absence of other specified parts of digestive tract; Z82.3 Family history of stroke; Z82.49 Family history of ischemic heart disease and other diseases of the circulatory system

== ENCOUNTER → 2022-08-30 | Outpatient (CLI) | payer OTHER ==
[~2022-08-30] MED LIST changes: +AMIODARONE HYD200 MG PO; +ATORVASTATIN CA40 M1 PO; +CLOPIDOGREL75 MG PO; +DULCOLAX STOOL100 M1 PO; +ELIQUIS5 M1 PO; +FERRO-TIME325 MG PO; +Imdur SA60 MG PO; +MASON NATURAL325 MG PO; +METOPROLOL25 MG PO; +MULTIPLE VITAM1 EAC2 PO; +PROTONIX TR40 M1 PO; +ROSUVASTATIN CA20 MG PO; +TYLENOL325 M3 PO; +VITAMIN C100 M3 PO; +VITAMIN C1000 M5 PO
== END | disposition home or self-care (01) ==
LOC: RAD 09:08
PROVIDERS: ATTEND Surgery
DX: I51.7 Cardiomegaly (principal); J90 Pleural effusion, not elsewhere classified; Z95.5 Presence of coronary angioplasty implant and graft; Z95.1 Presence of aortocoronary bypass graft; I49.3 Ventricular premature depolarization; I25.2 Old myocardial infarction

== ENCOUNTER → 2022-10-28 | Outpatient (CLI) | payer OTHER | END | disposition home or self-care (01) | LOC: CARD 11:12 | PROVIDERS: ATTEND Nurse Practitioner | DX: I08.3 Combined rheumatic disorders of mitral, aortic and tricuspid valves (principal); Z95.1 Presence of aortocoronary bypass graft ==

== ENCOUNTER → 2022-12-28 | Outpatient (CLI) | payer OTHER ==
[~2022-12-28] MED LIST changes: +K-TAB20 MEQ PO; +LASIX20 MG PO; +LOSARTAN-HCTZ1 EACH PO; +MAGNESIUM OXID400 MG PO
== END | disposition home or self-care (01) ==
LOC: WOUNDCARE 02:30
PROVIDERS: ATTEND Nurse Practitioner Primary Care
DX: S00.81XA Abrasion of other part of head, initial encounter (principal); S50.312A Abrasion of left elbow, initial encounter; I10 Essential (primary) hypertension; I48.91 Unspecified atrial fibrillation; K21.9 Gastro-esophageal reflux disease without esophagitis; Z96.652 Presence of left artificial knee joint; Z90.49 Acquired absence of other specified parts of digestive tract; Z90.710 Acquired absence of both cervix and uterus; X58.XXXA Exposure to other specified factors, initial encounter; Y93.89 Activity, other specified; Y92.89 Other specified places as the place of occurrence of the external cause; Y99.8 Other external cause status

== ENCOUNTER → 2023-01-03 | Outpatient (CLI) | payer OTHER | LOC: WOUNDCARE 01:19 | PROVIDERS: ATTEND Nurse Practitioner Primary Care | DX: S00.81XD Abrasion of other part of head, subsequent encounter (principal); L92.9 Granulomatous disorder of the skin and subcutaneous tissue, unspecified; I48.91 Unspecified atrial fibrillation; I10 Essential (primary) hypertension; K21.9 Gastro-esophageal reflux disease without esophagitis; Z79.01 Long term (current) use of anticoagulants; Z96.652 Presence of left artificial knee joint; Z90.49 Acquired absence of other specified parts of digestive tract; Z90.710 Acquired absence of both cervix and uterus; X58.XXXD Exposure to other specified factors, subsequent encounter ==

== ENCOUNTER 2023-06-29 14:48 | Emergency (ER) | payer OTHER ==
[~2023-06-29] VITALS: Wt 68.9 kg
[~2023-06-29 14:48] MED LIST changes: +RANOLAZINE ER500 MG PO; +TOPROL XL50 M1 PO; +XARE20MG PO
[2023-06-29 16:18] LABS: BASO # 0.1 10*3/uL (0.0-0.1); BASO % 0.8 % (0.0-1.0); EOS # 0.3 10*3/uL (0.0-0.4); EOS % 3.2 % (1.0-4.0); HEMATOCRIT 31.9 % (37.0-47.0); LYMPH # 1.4 10*3/uL (1.3-4.4); LYMPH % 15.7 % (27.0-41.0); MEAN CELL VOLUME 89.4 fl (81.0-99.0); MEAN CORPUSCULAR HGB 28.6 pg (27.0-31.0); MEAN PLATELET VOLUME 9.7 fl (9.6-12.3); MONO # 1.1 10*3/uL (0.1-1.0); MONO % 11.6 % (3.0-9.0); NEUT # 6.2 10*3/uL (2.3-7.9); NEUT % 68.5 % (47.0-73.0); PLATELET COUNT AUTOMATED 275 10*3/uL (130-400); RED BLOOD COUNT 3.57 10*6/uL (4.10-5.10); WHITE BLOOD COUNT 9.1 10*3/uL (4.8-10.8)
[2023-06-29 16:31] LABS: ACT PARTIAL THROMBO TIME 50.8 SECONDS (20.0-32.1)
[2023-06-29 16:44] LABS: POTASSIUM 3.8 mmol/L (3.4-5.1); TOTAL PROTEIN 6.7 gm/dL (6.0-8.0)
== END 2023-06-29 23:13 | disposition short-term general hospital (02) ==
LOC: ED 14:48
PROVIDERS: Emergency Medicine
DX: K92.2 Gastrointestinal hemorrhage, unspecified (principal); D64.9 Anemia, unspecified; E11.22 Type 2 diabetes mellitus with diabetic chronic kidney disease; I12.9 Hypertensive chronic kidney disease with stage 1 through stage 4 chronic kidney disease, or unspecified chronic kidney disease; N18.9 Chronic kidney disease, unspecified; N17.9 Acute kidney failure, unspecified; K21.9 Gastro-esophageal reflux disease without esophagitis; M19.90 Unspecified osteoarthritis, unspecified site; F32.A Depression, unspecified; E78.00 Pure hypercholesterolemia, unspecified; I25.2 Old myocardial infarction; I48.91 Unspecified atrial fibrillation; Z88.0 Allergy status to penicillin; Z91.018 Allergy to other foods; Z88.8 Allergy status to other drugs, medicaments and biological substances; Z98.890 Other specified postprocedural states; Z96.652 Presence of left artificial knee joint; Z90.49 Acquired absence of other specified parts of digestive tract; Z90.710 Acquired absence of both cervix and uterus

== ENCOUNTER → 2023-09-01 | Outpatient (CLI) | payer OTHER | END | disposition home or self-care (01) | LOC: RAD 12:59 | PROVIDERS: ATTEND Internal Medicine | DX: M19.012 Primary osteoarthritis, left shoulder (principal); M77.8 Other enthesopathies, not elsewhere classified; M25.812 Other specified joint disorders, left shoulder ==

== ENCOUNTER 2023-09-13 10:32 | Emergency (ER) | payer OTHER ==
[~2023-09-13] VITALS: Ht 162.5 cm; Wt 68.0 kg
[2023-09-13] MEDS ORDERED: HEPARIN SODIUM 250 ML IV SCH (10:55)
[2023-09-13 10:58] LABS: BASO % 0.4 % (0.0-1.0); EOS % 0.3 % (1.0-4.0); HEMATOCRIT 27.6 % (37.0-47.0); LYMPH # 1.4 10*3/uL (1.3-4.4); LYMPH % 11.9 % (27.0-41.0); MEAN CELL VOLUME 86.8 fl (81.0-99.0); MEAN CORPUSCULAR HGB CONC 31.2 g/dl (33.0-37.0); MEAN PLATELET VOLUME 8.9 fl (9.6-12.3); NEUT # 8.9 10*3/uL (2.3-7.9); PLATELET COUNT AUTOMATED 396 10*3/uL (130-400); RED BLOOD COUNT 3.18 10*6/uL (4.10-5.10); RED CELL DISTRI WIDTH 14.7 % (0-14.5); WHITE BLOOD COUNT 11.4 10*3/uL (4.8-10.8)
[2023-09-13] MEDS ORDERED: MORPHINE Sulfate 2 MG/ML SYR IV ONE ×2 (11:00→12:10)
[2023-09-13 11:21] LABS: POTASSIUM 3.9 mmol/L (3.4-5.1)
[2023-09-13 11:23] LABS: ACT PARTIAL THROMBO TIME 39.4 SECONDS (20.0-32.1)
[2023-09-13] MEDS ORDERED: SODIUM CHLORIDE 0.9% 1,000 ML IV ONE (11:40)
[2023-09-13] MEDS ORDERED: ATORVASTATIN CALCIUM 80 MG TAB PO ONE (11:40)
[2023-09-13] MEDS ORDERED: Metoprolol Tartrate 25 MG TAB PO ONE (11:40)
== END 2023-09-13 12:50 | disposition short-term general hospital (02) ==
LOC: ED 10:32
PROVIDERS: Student in an Organized Health Care Education/Training Program
DX: I21.3 ST elevation (STEMI) myocardial infarction of unspecified site (principal); I24.9 Acute ischemic heart disease, unspecified; I10 Essential (primary) hypertension; K21.9 Gastro-esophageal reflux disease without esophagitis; M19.90 Unspecified osteoarthritis, unspecified site; E11.9 Type 2 diabetes mellitus without complications; F32.A Depression, unspecified; I48.91 Unspecified atrial fibrillation; E78.00 Pure hypercholesterolemia, unspecified; I25.2 Old myocardial infarction; Z88.0 Allergy status to penicillin; Z91.018 Allergy to other foods; Z88.8 Allergy status to other drugs, medicaments and biological substances; Z98.890 Other specified postprocedural states; Z90.49 Acquired absence of other specified parts of digestive tract; Z90.710 Acquired absence of both cervix and uterus; Z96.652 Presence of left artificial knee joint

== ENCOUNTER → 2023-11-18 | Outpatient (CLI) | payer OTHER ==
[~2023-11-18] MED LIST changes: +ASPIRIN CHILDRE81 MG PO; +COZAAR50 M1 PO; +LASIX40 MG PO; +MAGNESIUM400 MG PO; +POTASSIUM CHLO20 ME4 PO; +TOPROL XL25 MG PO
== END ==
LOC: US 12:13
PROVIDERS: ATTEND Internal Medicine Nephrology
DX: N18.31 Chronic kidney disease, stage 3a (principal); N28.89 Other specified disorders of kidney and ureter

== ENCOUNTER 2024-01-05 07:38 | Emergency (ER) | payer OTHER ==
[~2024-01-05] VITALS: Ht 162.5 cm; Wt 70.3 kg
[2024-01-05] MEDS ORDERED: Ketorolac Tromethamine 30 MG/ML VIAL IV ONE (07:55)
[2024-01-05 08:28] LABS: BASO # 0.1 10*3/uL (0.0-0.1); BASO % 0.9 % (0.0-1.0); EOS # 0.3 10*3/uL (0.0-0.4); HEMATOCRIT 33.2 % (37.0-47.0); LYMPH # 1.4 10*3/uL (1.3-4.4); LYMPH % 23.7 % (27.0-41.0); MEAN CELL VOLUME 89.7 fl (81.0-99.0); MEAN CORPUSCULAR HGB 28.4 pg (27.0-31.0); MEAN CORPUSCULAR HGB CONC 31.6 g/dl (33.0-37.0); MEAN PLATELET VOLUME 9.2 fl (9.6-12.3); MONO # 0.6 10*3/uL (0.1-1.0); MONO % 9.5 % (3.0-9.0); NEUT # 3.5 10*3/uL (2.3-7.9); NEUT % 60.6 % (47.0-73.0); PLATELET COUNT AUTOMATED 253 10*3/uL (130-400); RED CELL DISTRI WIDTH 17.4 % (0-14.5); WHITE BLOOD COUNT 5.8 10*3/uL (4.8-10.8)
[2024-01-05] MEDS ORDERED: LASIX40 MG PO (08:35)
[2024-01-05] MEDS ORDERED: PLAVIX75 M1 PO (08:35)
[2024-01-05] MEDS ORDERED: MAGNESIUM400 M1 PO (08:35)
[2024-01-05] MEDS ORDERED: RANOLAZINE (08:37)
[2024-01-05] MEDS ORDERED: TOPROL XL25 MG PO (08:38)
[2024-01-05] MEDS ORDERED: HYZAAR 50-12.51 EACH PO (08:38)
[2024-01-05] MEDS ORDERED: SUCRALFATE1 GM PO (08:39)
[2024-01-05] MEDS ORDERED: MULTIVITAMIN1 EACH PO (08:39)
[2024-01-05] MEDS ORDERED: IRON 65 MG (08:40)
[2024-01-05] MEDS ORDERED: GLUCOSAMINE HC500 M1 PO (08:42)
[2024-01-05 09:00] LABS: POTASSIUM 3.8 mmol/L (3.4-5.1); TOTAL PROTEIN 6.2 gm/dL (6.0-8.0)
[2024-01-05] MEDS ORDERED: MELOXICAM15 MG PO (09:32)
== END 2024-01-05 09:40 | disposition home or self-care (01) ==
LOC: ED 07:38
PROVIDERS: Emergency Medicine
DX: R07.89 Other chest pain (principal); R10.12 Left upper quadrant pain; I10 Essential (primary) hypertension; K21.9 Gastro-esophageal reflux disease without esophagitis; M19.90 Unspecified osteoarthritis, unspecified site; E11.9 Type 2 diabetes mellitus without complications; Z79.4 Long term (current) use of insulin; F32.A Depression, unspecified; E78.00 Pure hypercholesterolemia, unspecified; I48.91 Unspecified atrial fibrillation; I25.2 Old myocardial infarction; Z88.0 Allergy status to penicillin; Z91.018 Allergy to other foods; Z88.8 Allergy status to other drugs, medicaments and biological substances; Z90.49 Acquired absence of other specified parts of digestive tract; Z90.710 Acquired absence of both cervix and uterus; Z98.890 Other specified postprocedural states

== ENCOUNTER → 2024-05-11 | Outpatient (CLI) | payer OTHER ==
[~2024-05-11] MED LIST changes: +GLUCOSAMINE HC500 M1 PO; +HYZAAR 50-12.51 EACH PO; +IRON 65 MG; +MAGNESIUM400 M1 PO; +MELOXICAM15 MG PO; +MULTIVITAMIN1 EACH PO; +PLAVIX75 M1 PO; +RANOLAZINE; +SUCRALFATE1 GM PO
[2024-05-11 16:16] LABS: BASO % 0.5 % (0.0-1.0); EOS # 0.1 10*3/uL (0.0-0.4); EOS % 1.6 % (1.0-4.0); HEMATOCRIT 34.5 % (37.0-47.0); LYMPH # 1.7 10*3/uL (1.3-4.4); LYMPH % 21.5 % (27.0-41.0); MEAN CELL VOLUME 91.3 fl (81.0-99.0); MEAN CORPUSCULAR HGB 29.9 pg (27.0-31.0); MEAN CORPUSCULAR HGB CONC 32.8 g/dl (33.0-37.0); MEAN PLATELET VOLUME 9.6 fl (9.6-12.3); MONO # 0.6 10*3/uL (0.1-1.0); MONO % 7.2 % (3.0-9.0); NEUT # 5.3 10*3/uL (2.3-7.9); NEUT % 68.9 % (47.0-73.0); PLATELET COUNT AUTOMATED 302 10*3/uL (130-400); RED BLOOD COUNT 3.78 10*6/uL (4.10-5.10); RED CELL DISTRI WIDTH 14.7 % (0-14.5); WHITE BLOOD COUNT 7.7 10*3/uL (4.8-10.8)
[2024-05-11 16:41] LABS: FREE T4 1.43 ng/dl (0.89-1.76); POTASSIUM 3.4 mmol/L (3.4-5.1)
[2024-05-11 16:43] LABS: VITAMIN D, 25-HYDROXY 46.7 ng/mL (30-100)
== END | disposition home or self-care (01) ==
LOC: LAB 15:53
PROVIDERS: ATTEND Internal Medicine
DX: R53.1 Weakness (principal)

== ENCOUNTER 2024-05-21 14:27 | Emergency (ER) | payer OTHER ==
[~2024-05-21] VITALS: Ht 162.5 cm; Wt 66.2 kg
[2024-05-21 15:13] LABS: BASO % 0.5 % (0.0-1.0); EOS # 0.1 10*3/uL (0.0-0.4); EOS % 1.5 % (1.0-4.0); HEMATOCRIT 34.6 % (37.0-47.0); LYMPH % 22.5 % (27.0-41.0); MEAN CELL VOLUME 91.8 fl (81.0-99.0); MEAN CORPUSCULAR HGB 28.9 pg (27.0-31.0); MEAN CORPUSCULAR HGB CONC 31.5 g/dl (33.0-37.0); MEAN PLATELET VOLUME 9.1 fl (9.6-12.3); MONO # 0.7 10*3/uL (0.1-1.0); MONO % 8.1 % (3.0-9.0); NEUT # 5.9 10*3/uL (2.3-7.9); NEUT % 66.9 % (47.0-73.0); PLATELET COUNT AUTOMATED 319 10*3/uL (130-400); RED BLOOD COUNT 3.77 10*6/uL (4.10-5.10); RED CELL DISTRI WIDTH 14.4 % (0-14.5); WHITE BLOOD COUNT 8.9 10*3/uL (4.8-10.8)
[2024-05-21 15:24] LABS: ACT PARTIAL THROMBO TIME 32.4 SECONDS (20.0-32.1)
[2024-05-21 15:36] LABS: POTASSIUM 3.3 mmol/L (3.4-5.1)
== END 2024-05-21 17:47 | disposition home or self-care (01) ==
LOC: ED 14:27
PROVIDERS: Physician Assistant Medical
DX: R07.89 Other chest pain (principal); M54.2 Cervicalgia; I48.91 Unspecified atrial fibrillation; I11.0 Hypertensive heart disease with heart failure; I50.9 Heart failure, unspecified; I25.10 Atherosclerotic heart disease of native coronary artery without angina pectoris; I25.2 Old myocardial infarction; E11.9 Type 2 diabetes mellitus without complications; K21.9 Gastro-esophageal reflux disease without esophagitis; M19.90 Unspecified osteoarthritis, unspecified site; F32.A Depression, unspecified; Z88.0 Allergy status to penicillin; Z91.018 Allergy to other foods; Z88.8 Allergy status to other drugs, medicaments and biological substances; Z98.890 Other specified postprocedural states; Z90.49 Acquired absence of other specified parts of digestive tract; Z90.710 Acquired absence of both cervix and uterus; Z96.652 Presence of left artificial knee joint

== ENCOUNTER 2024-06-14 09:24 | Inpatient (IN) | payer OTHER ==
[~2024-06-14] VITALS: Ht 162.6 cm; Wt 63.0 kg
[2024-06-14 09:38] VITALS: BP 132/57
[2024-06-14 09:59] LABS: BASO % 0.3 % (0.0-1.0); EOS % 0.5 % (1.0-4.0); HEMATOCRIT 34.3 % (37.0-47.0); MEAN CELL VOLUME 90.5 fl (81.0-99.0); MEAN CORPUSCULAR HGB 29.8 pg (27.0-31.0); MEAN CORPUSCULAR HGB CONC 32.9 g/dl (33.0-37.0); MEAN PLATELET VOLUME 9.2 fl (9.6-12.3); MONO # 0.6 10*3/uL (0.1-1.0); MONO % 6.5 % (3.0-9.0); NEUT # 5.8 10*3/uL (2.3-7.9); NEUT % 67.1 % (47.0-73.0); PLATELET COUNT AUTOMATED 379 10*3/uL (130-400); RED BLOOD COUNT 3.79 10*6/uL (4.10-5.10); RED CELL DISTRI WIDTH 14.5 % (0-14.5); WHITE BLOOD COUNT 8.7 10*3/uL (4.8-10.8)
[2024-06-14 10:18] LABS: POTASSIUM 2.9 mmol/L (3.4-5.1)
[2024-06-14] MEDS ORDERED: AZITHROMYCIN 250 MG TAB PO ONE (10:50)
[2024-06-14] MEDS ORDERED: Ceftriaxone Sodium 1 GM/10 ML SYR IV ONE (10:50)
[2024-06-14] MEDS ORDERED: IRON325 M1 PO (11:13)
[2024-06-14] MEDS ORDERED: POTASSIUM CHLORIDE 20 MEQ TAB PO ONE ×2 (11:20→13:00)
[2024-06-14 12:10] VITALS: BP 130/60
[2024-06-14 16:00] VITALS: BP 142/72
[2024-06-14] MEDS ORDERED: SUCRALFATE 1 GM TAB PO SCH (18:00)
[2024-06-14] MEDS ORDERED: SODIUM CHLORIDE 0.9% 1,000 ML IV SCH (19:00)
[2024-06-14 20:00] VITALS: BP 126/70
[2024-06-14] MEDS ORDERED: ACETAMINOPHEN 325 MG TAB PO PRN (20:20)
[2024-06-14 20:25] LABS: BILIRUBIN Negative (Negative); BLOOD Negative (Negative); CLARITY Clear (Clear); COLOR Yellow (Yellow); GLUCOSE Negative (Negative); KETONE Trace (Negative); LEUKO ESTERASE 2+ (Negative); NITRITE Negative (Negative); PH 5.5 (4.5-8.0); SPECIFIC GRAVITY 1.015 (1.001-1.030); UROBILINOGEN 0.2 E.U./dl (0.0-1.0)
[2024-06-14 20:52] LABS: BACTERIA 1+; EPITHELIAL CELLS 31-40; WBC 21-30 wbc/hpf (0-5)
[2024-06-14] MEDS ORDERED: METOPROLOL SUCCINATE XR 25 MG TAB PO SCH (22:00)
[2024-06-14] MEDS ORDERED: Ranolazine 500 MG TAB ER PO SCH (22:00)
[2024-06-15] VITALS: BP 133/63
[2024-06-15] MEDS ORDERED: Pantoprazole Sodium 40 MG TAB PO SCH (06:00)
[2024-06-15 08:00] VITALS: BP 138/84
[2024-06-15] MEDS ORDERED: ISOSORBIDE MONONITRATE 60 MG TAB PO SCH (10:00)
[2024-06-15] MEDS ORDERED: Losartan Potassium 50 MG TAB PO SCH (10:00)
[2024-06-15] MEDS ORDERED: Amiodarone Hydrochloride 200 MG TAB PO SCH (10:00)
[2024-06-15] MEDS ORDERED: ATORVASTATIN CALCIUM 40 MG TABLET PO SCH (10:00)
[2024-06-15] MEDS ORDERED: FUROSEMIDE 40 MG TAB PO SCH (10:00)
[2024-06-15] MEDS ORDERED: Ceftriaxone Sodium 1 GM in SYRINGE INFUSION 10 ML IV SCH (10:00)
[2024-06-15] MEDS ORDERED: POTASSIUM CHLORIDE 20 MEQ TAB PO SCH (10:00)
[2024-06-15] MEDS ORDERED: Clopidogrel Hydrogen Sulfate 75 MG TAB PO SCH (10:00)
[2024-06-15] MEDS ORDERED: RIVAROXABAN 15 MG TAB PO SCH (10:00)
[2024-06-15 10:48] LABS: BASO % 0.5 % (0.0-1.0); EOS % 0.6 % (1.0-4.0); HEMATOCRIT 32.9 % (37.0-47.0); MEAN CELL VOLUME 92.9 fl (81.0-99.0); MEAN CORPUSCULAR HGB 29.1 pg (27.0-31.0); MEAN CORPUSCULAR HGB CONC 31.3 g/dl (33.0-37.0); MEAN PLATELET VOLUME 9.1 fl (9.6-12.3); MONO # 0.7 10*3/uL (0.1-1.0); MONO % 10.8 % (3.0-9.0); NEUT # 3.5 10*3/uL (2.3-7.9); NEUT % 54.2 % (47.0-73.0); PLATELET COUNT AUTOMATED 352 10*3/uL (130-400); RED BLOOD COUNT 3.54 10*6/uL (4.10-5.10); RED CELL DISTRI WIDTH 14.6 % (0-14.5); WHITE BLOOD COUNT 6.5 10*3/uL (4.8-10.8)
[2024-06-15] MEDS ORDERED: AZITHROMYCIN 250 ML IV SCH (11:00)
[2024-06-15 11:12] LABS: POTASSIUM 3.8 mmol/L (3.4-5.1)
[2024-06-15 12:00] VITALS: BP 109/55
[2024-06-15 16:00] VITALS: BP 91/50
[2024-06-15 20:00] VITALS: BP 102/44
[2024-06-15] MEDS ORDERED: diphenhydrAMINE hydrochloride 25 MG CAP PO PRN (22:15)
[2024-06-16] VITALS: BP 107/50
[2024-06-16 08:00] VITALS: BP 135/56
[2024-06-16 11:08] LABS: POTASSIUM 3.5 mmol/L (3.4-5.1)
[2024-06-16 12:00] VITALS: BP 108/45
[2024-06-16 16:00] VITALS: BP 104/52
[2024-06-16 20:00] VITALS: BP 106/52
[2024-06-17] VITALS: BP 125/55
[2024-06-17 08:00] VITALS: BP 159/70
[2024-06-17 12:00] VITALS: BP 142/66
== END 2024-06-17 14:15 | disposition home or self-care (01) | DRG 194 ==
LOC: ED 09:24 → EDHOLD 11:22 → 4E 11:22
PROVIDERS: Internal Medicine; ADMIT Internal Medicine; ATTEND Internal Medicine
DX: J18.9 Pneumonia, unspecified organism (principal); I13.0 Hypertensive heart and chronic kidney disease with heart failure and stage 1 through stage 4 chronic kidney disease, or unspecified chronic kidney disease; I50.32 Chronic diastolic (congestive) heart failure; N39.0 Urinary tract infection, site not specified; E87.6 Hypokalemia; E86.0 Dehydration; I25.10 Atherosclerotic heart disease of native coronary artery without angina pectoris; K21.9 Gastro-esophageal reflux disease without esophagitis; N18.9 Chronic kidney disease, unspecified; E11.22 Type 2 diabetes mellitus with diabetic chronic kidney disease; Z96.652 Presence of left artificial knee joint; Z88.0 Allergy status to penicillin; Z88.8 Allergy status to other drugs, medicaments and biological substances; Z79.899 Other long term (current) drug therapy; Z90.710 Acquired absence of both cervix and uterus; Z90.49 Acquired absence of other specified parts of digestive tract; Z82.3 Family history of stroke; Z85.028 Personal history of other malignant neoplasm of stomach; Z95.1 Presence of aortocoronary bypass graft